=== PATIENT | male | born 1965 | race Caucasian/White ===

== ENCOUNTER 2024-07-24 22:59 | Inpatient (IN) | payer BC, SELFPAY ==
[2024-07-24 17:46] VITALS: BP 171/104
[2024-07-24 18:05] LABS: % Basophils 0.3 % (0-2); % Eosinophils 0.7 % (0-6); % Immature Granulocytes 0.2 % (0-0.5); % Lymphocytes 20.2 % (20.5-51.1); % Monocytes 8.4 % (1.7-9.3); % Neutrophils 70.2 % (42.2-75.2); Absolute Eosinophils 0.1 10^3/uL (0-0.7); Absolute Lymphocytes 2.6 10^3/uL (1.2-3.4); Absolute Monocytes 1.1 10^3/uL (0.1-0.6); Hematocrit 45.1 % (39.0-52.0); Hemoglobin 15.2 g/dL (13.0-18.0); Mean Corp Hgb Conc. 33.7 g/dL (33.0-37.0); Mean Corpuscular Hgb 29.7 pg (27.0-31.0); Mean Corpuscular Volume 88.3 fL (80.0-94.0); Mean Platelet Volume 9.9 fL (7.4-10.4); Nucleated Red Blood Cells % 0 % (-); Platelet Count 222 10^3/uL (130-400); Red Blood Cell Count 5.11 10^6/uL (4.70-6.10); Red Cell Dist. Width 12.4 % (11.5-14.5); White Blood Cell Count 12.8 10^3/uL (4.8-10.8)
[2024-07-24 18:25] LABS: ALT (SGPT) 30 U/L (0-50); AST (SGOT) 25 U/L (17-59); Albumin 4.6 g/dl (3.5-5.0); Alkaline Phosphatase 51 U/L (38-126); Blood Urea Nitrogen 11 mg/dl (9-20); Calcium 9.4 mg/dl (8.4-10.2); Carbon Dioxide 28 mmol/L (22-30); Chloride 100 mmol/L (98-107); Glucose 115 mg/dl (70-99); Lipase 83 U/L (23-300); Potassium 4.2 mmol/L (3.5-5.1); Sodium 139 mmol/L (135-145); Total Bilirubin 0.6 mg/dl (0.2-1.3); Total Protein 7.4 g/dl (6.3-8.2); eGFR > 60.00
[2024-07-24 19:37] VITALS: BMI 33.5
[2024-07-24 19:40] VITALS: BP 167/87
--- NOTE | 2024-07-24 19:44 | ED.GENMED ---
History of Present Illness
General
Chief Complaint: Abdominal Pain
Source: patient
Exam Limitations: none
Time Seen by Provider: 07/24/24 19:39
History of Present Illness
History of Present Illness:
58-year-old male left lower quadrant pain. Some constipation issues. Pain on and off for a week. Mild to moderate nature at times. No nausea or vomiting no fever. Remote history of diverticulitis
Past History
Past History
ED Past Medical History: NIDDM (Currently not on medication)
Review of Systems
Review of Systems
All Other Systems: Not applicable
Constitutional: Denies fever or chills
ABD/GI: Denies vomiting or diarrhea
Phy Exam
Physical Exam
Physical Exam:
GENERAL: Alert and oriented in no apparent distress
EYE: Orbits normal.
NECK: Supple
CARDIAC: Regular rate and rhythm without any obvious murmurs.
LUNGS: Clear breath sounds,normal
ABDOMEN: Soft, mild reproducible left lower quadrant tenderness. No rebound or guarding no mass or hernia
NEUROLOGICAL: Alert and oriented , grossly non-focal
SKIN: Warm and dry, no rash or lesion, no discoloration, skin intact.
MUSCULOSKELETAL: No edema,no deformity.Good color
PSYCH: Normal and appropriate interaction.
Course
Orders/Labs/Results
Orders:
Orders
07/24/24 17:56
Complete Blood Count/With Diff Urgent
Comprehensive Metabolic Panel Urgent
Lipase Urgent
07/24/24 19:44
CT Abd/Pel (IV only)-DH only Urgent
Comment:
Reason For Exam: Left lower quadrant pain. History of diverticulit
IV Insert/Care/Rem.- Treatment PRN
0.9% Sodium Chloride 500 ml [Nss] 500 ml IV BOLUS
07/24/24 22:29
Zosyn 3.375 grams IVPB NOW Piperacillin/Tazo 3.375 Gram [Zosyn] 3.375 gram in 50 ml IV NOW
Abnormal Lab Results
07/24/24
17:56
WBC 12.8 H 10^3/uL
(4.8-10.8)
Absolute Neuts (auto) 9.0 H 10^3/uL
(1.4-6.5)
Absolute Monos (auto) 1.1 H 10^3/uL
(0.1-0.6)
Lymphocytes % 20.2 L %
(20.5-51.1)
Glucose 115 H mg/dl
(70-99)
07/24/24 17:56
07/24/24 17:56
Vital Signs
Initial and Last Documented VS:
Initial Vital Signs
Temp Pulse Resp BP Pulse Ox
98.4 F 73 18 171/104 97
07/24/24 17:46 07/24/24 17:46 07/24/24 17:46 07/24/24 17:46 07/24/24 17:46
Last Documented Vital Signs
Temp Pulse Resp BP Pulse Ox
98.4 F 74 18 153/78 98
07/24/24 17:46 07/24/24 21:54 07/24/24 21:54 07/24/24 21:40 07/24/24 21:41
MDM/Problems Addressed
Differential Diagnosis Includes:
Very high suspicion for diverticulitis. Patient is nontoxic. Await CT scan to decide inpatient versus outpatient management
*Radiology
Radiology exam reviewed: radiology read reviewed (Diverticulitis with small abscess)
*Pulse Oximetry
Patient hypoxic: no
*Critical Care Note
Total Time (30-74mins, 75-104mins- exclusive of procedures): Not Applicable
Update Note
Update Note:
Patient will be admitted for diverticulitis with small cyst.
ED Attending Note
-
Portions of this chart may have been created with voice recognition software.� Occasional wrong word or��sound alike� substitutions may have occurred due to the inherent limitations of voice recognition software.
Discharge Plan
Departure
Patient Disposition: Admit
Date of Disposition: 07/24/24
Time of Disposition: 22:30
Presentation/result/management discussed w/ accepting MD/DO: Hospitalist
Discharge Problem:
Diverticulitis/small abscess
Referrals:
Ernesto Winkler MD [Family Provider] -
Interventions
Interventions:
*Risk Screen - Suicide Last Done: 07/24/24 17:46
*General Assessment Last Done: 07/24/24 17:46
*Neglect/Abuse Screening Last Done: 07/24/24 17:46
ED- Fall Risk Assessment Last Done: 07/24/24 19:41
*ED COVID-19 Vaccine History Last Done: 07/24/24 19:37
QK-Ubxoyh-Mlmpkqeumq Assessment Last Done: 07/24/24 19:40
Discharge Date and Time
Print Language: PORTUGUESE
[2024-07-24] MEDS: NSS 500 IV (19:50)
[2024-07-24 20:00] VITALS: BP 156/80
[2024-07-24 21:40] VITALS: BP 153/78
[2024-07-24 22:00] VITALS: BP 150/78
[2024-07-24] MEDS: ZOSYN 50 IV (22:36)
--- NOTE | 2024-07-24 22:37 | HPS.HSE ---
Family Physician
-
Family Physician: Ernesto Winkler
Chief Complaint
-
Left lower quadrant pain
History of Present Illness
58-year-old male with past medical history for diverticulitis, type 2 diabetes presented to us with left lower quadrant pain for past 1 week associated with constipation. Patient denied any nausea or vomiting. Patient denied any fever, chills,
congestion, cough. Patient denied any chest pain or short of breath. Patient denied any dysuria, hematuria.
Treated with IV Zosyn for diverticulitis. Admitting for further management
Medical History
Past Medical History
Past Medical History: Reports Other
Additional Past Medical History:
DM
Diverticulitis
Past Surgical History: Reports None and Other
Additional Past Surgical History:
Carpal tunnel surgery
Left knee replacement
Social History
Tobacco: Non-smoker
Alcohol: Occasional
Drug: None
Personal:
Living: With Family
Family History
Family History: Not pertinent
Allergies / Home Medications
Allergies reflects when Allergies were last updated in [facility].
Home Medications with original date entered in [facility]
Allergy/Medication List:
Allergies
Allergy/AdvReac Type Severity Reaction Status Date / Time
No Known Allergies Allergy Unverified 07/24/24 17:46
Home Medications
No Meds [No Current Medications] 07/24/24
Review of Systems
-
Constitutional: Reports No Symptoms
EENT: Reports No Symptoms
Respiratory: Reports No Symptoms
Cardiac: Reports No Symptoms
Abdomen/GI: Reports Abdominal Pain and Constipated
: Reports No Symptoms
Musculoskeletal: Reports No Symptoms
Skin: Reports No Symptoms
Neurological: Reports No Symptoms
Endocrine: Reports No Symptoms
Hematologic/Lymphatic: Reports No Symptoms
Psych: Reports No Symptoms
Physical Exam
Vital Signs
Vital Signs
Temp Pulse Resp BP Pulse Ox
98.4 F 74 18 153/78 98
07/24/24 17:46 07/24/24 21:54 07/24/24 21:54 07/24/24 21:40 07/24/24 21:41
Physical Exam
General: Well Developed, Well Nourished and No Apparent Distress
HEENT: NormoCephalic, Moist mucous membranes and Atraumatic
Respiratory: Clear
Cardiac: S1/S2 and Regular Rhythm; No Murmur or Rub
GI: Soft, Non Tender, Non Distended and Normal Bowel Sounds; No Organomegaly
Rectal: Deferred by Provider
Musculoskeletal: No Clubbing, No Cyanosis and No Edema
Skin: No Rash
Neuro: AO x 3 and Nonfocal/grossly intact
Psych: Calm
Laboratory Results
-
07/24/24 17:56
07/24/24 17:56
Laboratory Results
Total Bilirubin 0.6 mg/dl (0.2-1.3) 07/24/24 17:56
AST 25 U/L (17-59) 07/24/24 17:56
ALT 30 U/L (0-50) 07/24/24 17:56
Alkaline Phosphatase 51 U/L (38-126) 07/24/24 17:56
Lipase 83 U/L (23-300) 07/24/24 17:56
Data Reviewed
-
Lab Data: Labs Reviewed by me
Impression/Plan
-
#diverticulitis with small abscess
-WBCs 12.8
-Continue IV Zosyn
-Tylenol as needed for fever and pain
-NPO
-Dilaudid as needed for pain
# DVT prophylaxis
-SCDs
# Sleep apnea
-CPAP
# CODE STATUS
-Full code
--- NOTE | 2024-07-24 22:42 | W.PN.UPDATE ---
Update Note
Progress Note Update
Patient seen in conjunction with [facility] SPECIALIST. I agree with the findings on history and physical. I concur with the assessment and plan unless stated otherwise.
Briefly this is a 58-year-old male with history of MARIO on CPAP, reports history of prior diverticulitis 8 years ago presents to the emergency department with 1 week history of abdominal complaints. He reported development of constipation 1 week
ago. Then left lower quadrant abdominal pain. He took some laxative which appeared to improve the constipation but the pain was persistent. He did not have nausea vomiting or diarrhea otherwise. He denied having fevers or chills. However the
pain in reminds him of his prior episodes of diverticulitis and he decided come to the emergency department today. He denies any recent procedures. He denies any recent antibiotics.
In the emergency department he was afebrile, blood pressure was 150/70 with a pulse of 74. Oxygen saturation was 98% on room air. Lab work shows leukocytosis to 12.8 otherwise CBC was unremarkable. Electrolytes BUN/creatinine were within normal
limits. LFTs were unremarkable and lipase was normal. CT of the abdomen and pelvis showing acute sigmoid diverticulitis, no free here, however there is a small possible fluid collection anterior and adjacent to the colon measuring 1.1 x 1.9 x 1.7
cm which could be an early small abscess.
A&P
Sigmoid diverticulitis - Non-toxic appearing, HD stable and no systemic findings. CT c/w divertiuclitis and no perforation. Question of small fluid collection that could be an early abscess.
- admit to med surg
- NPO, IV fluids, pain control and antiemetics
- continue IV zosyn given CT scan findings
- serial exam for now. Repeat CT scan if febrile or worsening pain
- if improved, possibly repeat CT scan to see if collection persistent
- Given findings on CT, consider colorectal surgery
MARIO
- cpap hs
DVT PPX - lovenox sq
Code status - Full Code
[2024-07-25 01:15] VITALS: BP 148/69
[2024-07-25] MEDS: NSS 1000 IV (01:23)
[2024-07-25] MEDS: DILAUDID 0.5 MG IV (01:23)
[2024-07-25] MEDS: ZOSYN 50 IV ×4 (04:33→22:22)
[2024-07-25 06:39] LABS: Mean Corp Hgb Conc. 34.1 g/dL (33.0-37.0); Mean Corpuscular Hgb 30.1 pg (27.0-31.0); Mean Corpuscular Volume 88.2 fL (80.0-94.0); Mean Platelet Volume 10.2 fL (7.4-10.4); Platelet Count 204 10^3/uL (130-400); Red Blood Cell Count 4.65 10^6/uL (4.70-6.10); Red Cell Dist. Width 12.4 % (11.5-14.5); White Blood Cell Count 12.4 10^3/uL (4.8-10.8)
[2024-07-25 10:15] VITALS: BP 147/84
--- NOTE | 2024-07-25 11:34 | CON.GS ---
Addendum entered and electronically signed by Phil Driver MD 07/25/24 12:06:
I saw and examined the patient.
The Physician Practice Administrator's note was reviewed and I agree with the note.
Comment: 2nd visit to hospital for diverticulitis (last time 8 years ago). He suspects some episodes in between. Began this time with constipation and progressed to severe LLQ pain. Denies f/c/n/v. Exam with mild-mod ttp to LLQ, mild distention.
AFVSS. Mild leukocytosis. CT with wall thickening and stranding about the sigmoid colon, no free air or pneumatosis, ? pericolonic abscess. Hinchey 1 vs 2. Plan cor CLD, IV abx. Advised to avoid constipation in future. C-scope scheduled in about 2
weeks may need to be delayed pending his progress.
Original Note:
Consultation
-
Date/Time Consultation Requested: 07/25/24 001
Requesting Provider: Freddy
Medical History
-
Chief Complaint: LLQ pain
History of Present Illness:
Mr. Acosta is a 58 yo male with a h/o DM and uncomplicated diverticulitis about 8 years ago who presents with left lower quadrant pain. He notes that about one month ago, he was initiated on metformin and noted 3-4 days of GI upset and
discontinued the medication but is awaiting follow up with his provider to determine if he should be on another medication. He scheduled an outpatient colonoscopy in follow up which was to be done on 08/03. Overall, he felt well from a GI standpoint
until about 1 week ago when he developed constipation and some lower abdominal discomfort. He began taking Dulcolax and was able to pass hard, formed BM's but noted the abdominal pain persisted and worsened localizing to the LLQ. He denies nausea,
vomiting, fevers or chills. On exam, there is focal tenderness to the LLQ with minimal distention present.
Past Medical History
Past Medical History: Diverticulitis and NIDDM
Past Surgical History: Orthopedic (left TKR, carpal tunnel surgery)
Social History
Tobacco: Non-Smoker
Alcohol: Occasional
Family History
Family History: Reviewed & Not Pertinent
Allergies / Home Medications
Allergy/AdvReac Type Severity Reaction Status Date / Time
No Known Allergies Allergy Unverified 07/24/24 17:46
�Medication �Instructions �Recorded �Confirmed �Type
No Meds [No Current Medications] 07/24/24 07/24/24 History
Review of Systems
-
History Source: Patient
All other systems: Negative unless noted
A 10 point review of systems was completed, and was negative except as per HPI.
Physical Exam
Vital Signs
Temp Pulse Resp BP Pulse Ox
98.8 F 64 18 147/84 98
07/25/24 10:15 07/25/24 10:15 07/25/24 10:15 07/25/24 10:15 07/25/24 10:15
07/24/24 07/25/24 07/26/24
06:59 06:59 06:59
Actual Weight 94 kg
Body Mass Index (BMI) 33.5
Lab Results
07/25/24 06:15
07/24/24 17:56
WBC 12.4 10^3/uL (4.8-10.8) H 07/25/24 06:15
Hgb 14.0 g/dL (13.0-18.0) 07/25/24 06:15
Hct 41.0 % (39.0-52.0) 07/25/24 06:15
Plt Count 204 10^3/uL (130-400) 07/25/24 06:15
Abs Immat Gran (auto) 0.0 10^3/uL (0-0.05) 07/24/24 17:56
Neutrophils % 70.2 % (42.2-75.2) 07/24/24 17:56
Physical Exam
General: Well Developed and Well Nourished
HEENT: Moist Mucous Membranes
Respiratory: Non Labored Respirations
GI: Soft, Tender (LLQ) and Distended (minimal)
Skin: Warm and Dry
Neuro: Awake, Alert and AO x 3
Psych: Calm
Data Reviewed
-
CT Scan: Image Personally Visualized and interpreted, Report Reviewed by me, Discussed with Physician and Discussed with Patient
Labs: Labs Reviewed by me, Discussed with Physician, Discussed with Patient and Discussed with Family
Old Records: Reviewed
Assessment / Plan
-
58 yo male with a h/o diverticulitis and DM presenting with one week of constipation and worsening lower abdominal pain. LLQ tenderness on exam. CT imaging in work up consistent with sigmoid diverticulitis. No true abscess although there is a small
amount of extraluminal fluid surrounding the area of inflammation. He is afebrile with mild leukocytosis. Vitals stable.
--Trial of clears
--Continue IV abx
--Follow exams/labs
--No plan for emergent surgery at this time, will follow clinically for improvement
Medical management as per primary team
[2024-07-25 12:47] LABS: Glucose - Point of Care 91 mg/dl (70-99)
--- NOTE | 2024-07-25 12:50 | W.PN.HOSP.TC ---
Today's Communication/Plan
-
see outlined plan
Assessment / Plan
Assessment / Plan
assessment:
acute diverticulitis
- CT: Significant acute diverticulitis of the proximal sigmoid colon. No evidence of perforation nor abscess formation.
- clears
- IV Abx, Zosyn
- pain control, anti-emetics
- GS following
MARIO on CPAP
DVT ppx: SCDs
Code: Full
Anticipated Discharge: 24 - 48 hours
Subjective/Interval History
-
Date of Service: July 25, 2024
pain improving
tolerating clears
Objective Data
-
Labs:
Laboratory Results
07/25/24
06:15
WBC 12.4 H
Hgb 14.0
Hct 41.0
Plt Count 204
Vital Signs:
Vital Signs
Temp Pulse Resp BP Pulse Ox
98.8 F 64 18 147/84 98
07/25/24 10:15 07/25/24 10:15 07/25/24 10:15 07/25/24 10:15 07/25/24 10:15
Physical Exam
-
General: No Apparent Distress
HEENT: Normocephalic and Atraumatic
Respiratory: Clear to Auscultation; Negative Wheezes
Cardiac: Regular Rhythm and S1/S2
GI: Tender (LLQ) and Distended
Genito-urinary: No Costovertebral Tender
Neuro: AO x 3
Hematologic / Lymphatic: No Lymphadenopathy
Psych: Calm
Data Reviewed
-
Total Time Spent with Patient (in minutes): 42
Labs: Labs Reviewed by me
[2024-07-25 16:23] VITALS: BP 136/78
[2024-07-25] MEDS: NSS IV (16:25)
[2024-07-25 20:53] VITALS: BP 166/73; BMI 33.0
[2024-07-25 21:15] LABS: Glucose - Point of Care 182 mg/dl (70-99)
[2024-07-25 23:19] VITALS: BP 155/70
--- NOTE | 2024-07-25 23:20 | PTCARENOTE ---
Patient arrived to unit via stretcher around 20:35 with dx of diverticulitis. AAOX3. Pleasant and cooperative with care. Patient self with transfer. Deneis pain at current time. Has own CPAP machine with him. Oriented to unit. Call lopez within reach.
[2024-07-26] MEDS: ZOSYN 50 IV ×2 (04:39→11:38)
[2024-07-26 07:55] VITALS: BP 140/74
[2024-07-26 07:55] LABS: Hematocrit 39.7 % (39.0-52.0); Hemoglobin 13.6 g/dL (13.0-18.0); Mean Corp Hgb Conc. 34.3 g/dL (33.0-37.0); Mean Corpuscular Hgb 30.5 pg (27.0-31.0); Platelet Count 197 10^3/uL (130-400); Red Blood Cell Count 4.46 10^6/uL (4.70-6.10); Red Cell Dist. Width 12.2 % (11.5-14.5); White Blood Cell Count 9.6 10^3/uL (4.8-10.8)
[2024-07-26 08:43] LABS: Blood Urea Nitrogen 8 mg/dl (9-20); Calcium 8.6 mg/dl (8.4-10.2); Carbon Dioxide 26 mmol/L (22-30); Chloride 103 mmol/L (98-107); Estimated Creatinine Clearance 98 ml/min; Glucose 115 mg/dl (70-99); Potassium 3.9 mmol/L (3.5-5.1); Sodium 139 mmol/L (135-145); eGFR > 60.00
[2024-07-26 08:46] LABS: Glucose - Point of Care 112 mg/dl (70-99)
--- NOTE | 2024-07-26 08:50 | W.PN.CRS1 ---
Today's Communication / Plan
-
low residue
okay for d/c from our perspective if tolerates diet
complete course outpatient abx
Assessment/Plan
-
58 yo male with a h/o diverticulitis and DM presenting with one week of constipation and worsening lower abdominal pain. LLQ tenderness on exam. CT imaging in work up consistent with sigmoid diverticulitis. No true abscess although there is a small
amount of extraluminal fluid surrounding the area of inflammation. He is afebrile with mild leukocytosis. Vitals stable.
WBC: 9.6, vitals normal
--Advance to low residue
--Continue IV abx
--Follow exams/labs
--No plan for emergent surgery at this time, will follow clinically for improvement
--Okay for discharge later today if tolerates a low residue diet. Will need to continue a course of outpatient antibiotics.
--Discussed with patient that he will likely need to hold off on his colonoscopy which is scheduled for 08/[address] Heart
Subjective Data
Subjective Data
Date of Service: July 26, 2024
Patient states he has had 3 to 4 attacks of diverticulitis in the past. His last one he had a CT proven scan and was placed on po antibiotics. He may have had one a month ago but it resolved in 3 days. He has no pain currently. He denies nausea or
vomiting. He has flatus. He has not had a bowel movement for two days. His bowel movements are typically 1-2 times a day. He has no issues with urinating. He has no blood or pain in his urine. He is hungry currently. His last scope was three years
ago which showed 2-3 polyps (no report available). Overall his pain is much better.
Objective Data
-
Vital Signs
Temp Pulse Resp BP Pulse Ox
98.2 F 60 16 140/74 97
07/26/24 07:55 07/26/24 07:55 07/26/24 07:55 07/26/24 07:55 07/26/24 07:55
Intake & Output
07/25/24 07/26/24 07/27/24
06:59 06:59 06:59
Intake Total 220 / 220
Balance 220 / 220
Intake:
Oral fluids 220 / 220
Other:
Number of approximated MODERATE 1
amounts of urine
Lab Results
07/26/24 07:38
07/26/24 07:38
Physical Exam
-
General: No Acute Distress and AOx3
Abdomen: Soft, Non Distended and Tender (mild LLQ)
Skin: Warm and Dry
[2024-07-26 09:58] LABS: Glycohemoglobin (HgbA1c) 5.9 % (4.0-5.6)
--- NOTE | 2024-07-26 10:56 | W.PN.HOSP.TC ---
Addendum entered and electronically signed by Melody Tinsley MD 07/26/24 14:26:
total DC time 37 min
Original Note:
Today's Communication/Plan
-
see A/P
Assessment / Plan
Assessment / Plan
A/P:
# Acute diverticulitis
CT: Significant acute diverticulitis of the proximal sigmoid colon. No evidence of perforation nor abscess formation.
Advanced to low residue and pt tolerated well
Can switch IV Abx Zosyn to PO Flagyl/Levaquin to complete 7 days total
recc outpt C scope in 4-6 weeks with GI outpt, pt informed
Pain control with tylenol
GS following
# MARIO on CPAP
DVT ppx: SCDs
Code: Full
Anticipated Discharge: Today
Subjective/Interval History
-
Date of Service: July 26, 2024
Objective Data
-
Labs:
Laboratory Results
07/26/24
07:38
WBC 9.6
Hgb 13.6
Hct 39.7
Plt Count 197
Sodium 139
Potassium 3.9
Chloride 103
Carbon Dioxide 26
BUN 8 L
Creatinine 0.9
Glucose 115 H
Calcium 8.6
Vital Signs:
Vital Signs
Temp Pulse Resp BP Pulse Ox
36.8 C 60 16 140/74 97
07/26/24 07:55 07/26/24 07:55 07/26/24 07:55 07/26/24 07:55 07/26/24 07:55
I&O
07/25/24 07/26/24 07/27/24
06:59 06:59 06:59
Intake Total 220 / 220
Balance 220 / 220
Review of Systems
-
All other systems: Reviewed and negative
Abdomen/GI: Denies Abdominal Pain
Physical Exam
-
General: Well Developed, Well Nourished, No Apparent Distress, Comfortable, Conversant and Obese
HEENT: Normocephalic and Atraumatic
Respiratory: Clear to Auscultation and Non Labored Respirations; Negative Wheezes or Accessory Resp Muscle Use
Cardiac: Regular Rhythm and S1/S2
GI: Soft, Nontender, Nondistended and Normal Bowel Sounds
Genito-urinary: No Costovertebral Tender
Neuro: AO x 3
Psych: Calm and Intact Judgement/Insight
Data Reviewed
-
Labs: Labs Reviewed by me
--- NOTE | 2024-07-26 11:19 | CM ---
Patient seen at bedside. Patient states that he lives with his in a 2 story home. Patient has CPAP DME at home. Patient PCP is Dr. Winkler- first visit scheduled for end of next week. Patient states that he uses the [facility] in [place] on
[address]. Patient plan is for discharge home today. Patient does not anticipate any discharge needs at this time. CM will continue to follow for discharge planning needs.
Plan; home with no needs anticipated.
[2024-07-26 12:48] VITALS: BP 138/65
--- NOTE | 2024-07-26 14:13 | W.DCSUMMARY ---
Discharge Summary
Discharge Data
Date of Admission: 07/24/24
Date of Discharge: 07/26/24
-
Pending Results: No
Hospital Course
Principal Diagnosis:
Acute recurrent diverticulitis without abscess or perforation
Chronic Diagnoses:�
Obstructive sleep apnea on CPAP
Consultations:�
General Surgery
Procedures:�
None
Clinical course:�
This is a 58-year-old male, with past medical history as stated above, who presented with left lower quadrant abdominal pain.
Problem 1:
Acute recurrent diverticulitis.
His CT AP noted significant acute diverticulitis of the proximal sigmoid colon, but no evidence of perforation or abscess formation.
His diet was advanced to low residue which he tolerated well.
He received IV antibiotic Zosyn while in the hospital and he can continue with oral Flagyl/Levaquin to complete 7 days total antibiotic course (5 more days following discharge).
He has been informed to follow-up with his GI doctor for outpatient colonoscopy in 4 to 6 weeks.
As for the rest of his medical problems, they were stable during his hospital stay.
Discharge Plan
-
Patient Disposition: Home (Routine Discharge)
Discharge Diagnosis/Procedures: Diverticulitis
Condition: Good
Diet: Low Residue
Activity: As tolerated
Driving Restrictions: As prior to admission
Activity Restrictions/Additional Instructions:
outpatient C scope in 4-6 weeks
Instructions: Low Fiber Diet
Referrals:
Ernesto Winkler MD [Family Provider] - in less than 1 week
Owen Boateng MD [Active] - in two to three weeks
Additional Discharge Medication Instructions: Continue Levaquin and Flagel for 5 more days
Prescriptions:
New
acetaminophen 325 mg Tablet
650 mg PO Q4HPRN PRN (Reason: mild pain/SALAZAR/temp> 100.4F) Qty: 20 0RF
levofloxacin 750 mg tablet
750 mg PO DAILY 5 Days Qty: 5 0RF
metronidazole 500 mg tablet
500 mg PO Q8H 5 Days Qty: 15 0RF
Discharge Orders:
Discharge Patient (As Directed); Ordered 07/26/24
Ordered By: Melody Tinsley
Discharge Date and Time
Discharge Date/Time: 07/26/24 13:40
Print Language: ITALIAN
== END 2024-07-26 13:40 | disposition home or self-care (01) | DRG 392 ==
LOC: 4 WEST ACU 22:59
PROVIDERS: Emergency Medicine; Internal Medicine; Registered Nurse; ADMITTING PHYSICIAN Internal Medicine; ATTENDING PHYSICIAN Internal Medicine; EMERGENCY PHYSICIAN Emergency Medicine; FAMILY PHYSICIAN Family Medicine; OTHER PHYSICIAN Surgery
DX: K57.32 Diverticulitis of large intestine without perforation or abscess without bleeding (principal); G47.33 Obstructive sleep apnea (adult) (pediatric); E11.9 Type 2 diabetes mellitus without complications; K59.00 Constipation, unspecified
CPT/HCPCS: 74177; 80048; 80053; 82962; 83036; 83690; 85025; 85027; 86140; 96361; 96365; 99285; Q9967

== ENCOUNTER 2024-09-28 06:21 | Day surgery (SDC) | payer BC, SELFPAY | END 2024-09-28 09:03 | disposition home or self-care (01) | LOC: GI 06:21 | PROVIDERS: ATTENDING PHYSICIAN Surgery | PROC: 0DBN8ZX Excision of Sigmoid Colon, Via Natural or Artificial Opening Endoscopic, Diagnostic (ICD-10-PCS; 2024-09-28) | DX: Z12.11 Encounter for screening for malignant neoplasm of colon (principal); Z86.0100 Personal history of colon polyps, unspecified; K57.30 Diverticulosis of large intestine without perforation or abscess without bleeding; D12.7 Benign neoplasm of rectosigmoid junction | CPT/HCPCS: 45380; 88305 ==